=== PATIENT | male | born 1955 | race African-American/Black ===

== ENCOUNTER 2020-07-19 10:16 | Emergency (ER) | payer MEDICAID ==
[~2020-07-19] VITALS: Ht 185.4 cm; Wt 113.0 kg
[~2020-07-19 10:16] MED LIST: ASPI-1497 PO; ATOR20TA65 MT; BUSP15TA3 MT; HYDR50TA55 MT; NALO4SPR BOTHNSTRLS; OLAN20TA34 MT
[2020-07-19 11:32] LABS: EOSINOPHILS % 2.4 % (0.0-5.0); HEMATOCRIT. 41.2 % (42.0-52.0); HEMOGLOBIN. 13.6 g/dL (14.0-18.0); LYMPHOCYTES % 23.2 % (20.0-50.0); MEAN CORPUSCULAR HEMOGLOBIN 29.7 pg (28.0-32.0); MEAN CORPUSCULAR VOLUME 89.7 fL (80.0-94.0); MEAN PLATELET VOLUME 8.2 fl (7.4-10.4); MONOCYTES % 5.6 % (2.0-8.0); NEUTROPHILS % 67.8 % (40.0-76.0); PLATELET 237 x1000/uL (130-400); RED BLOOD CELL COUNT 4.59 mill/uL (4.7-6.1); RED CELL DISTRIBUTION WIDTH 16.8 % (11.6-14.6)
[2020-07-19 11:36] LABS: CHLORIDE 109 mEq/L (98-107)
[2020-07-19 13:03] LABS: PROTHROMBIN TIME 10.9 sec (9.6-11.0)
[2020-07-19] MEDS ORDERED: KETOROLAC 15MG/ML VIAL IV ONE (15:15)
[2020-07-19] MEDS ORDERED: ACETAMINOPHEN 325MG TABLET PO ONE (15:15)
[2020-07-19 16:10] VITALS: BP 146/88
== END 2020-07-19 16:26 | disposition home or self-care (01) ==
LOC: ER 10:16
DX: M79.89 Other specified soft tissue disorders (principal); E78.00 Pure hypercholesterolemia, unspecified; J45.909 Unspecified asthma, uncomplicated; Z79.899 Other long term (current) drug therapy; Z98.890 Other specified postprocedural states; Z93.0 Tracheostomy status
CPT/HCPCS: 36415; 80048; 85025; 85610; 93005; 93971; 96374; 99285; J1885